=== PATIENT | male | born 1975 | race African-American/Black ===

== ENCOUNTER 2016-03-18 09:25 | Emergency (ER) | payer MEDICAID ==
[~2016-03-18] VITALS: Ht 172.7 cm; Wt 100.0 kg
[2016-03-18 11:41] VITALS: BP 137/87
[2016-03-18] MEDS ORDERED: IBUPROFEN 600 MG TABLET PO ONE (12:45)
== END 2016-03-18 13:33 | disposition home or self-care (01) ==
LOC: EMS 09:26
DX: S09.90XA Unspecified injury of head, initial encounter (principal); R11.10 Vomiting, unspecified; J45.909 Unspecified asthma, uncomplicated; W22.8XXA Striking against or struck by other objects, initial encounter; Y93.89 Activity, other specified; Y92.89 Other specified places as the place of occurrence of the external cause; Y99.8 Other external cause status
CPT/HCPCS: 70450; 72125; 99284

== ENCOUNTER 2016-03-22 09:48 | Emergency (ER) | payer MEDICAID ==
[~2016-03-22] VITALS: Ht 172.7 cm; Wt 105.0 kg
[2016-03-22 10:32] VITALS: BP 138/85
== END 2016-03-22 11:10 | disposition home or self-care (01) ==
LOC: EMS 09:49
DX: S09.90XA Unspecified injury of head, initial encounter (principal); Z00.00 Encounter for general adult medical examination without abnormal findings; J45.909 Unspecified asthma, uncomplicated; X58.XXXA Exposure to other specified factors, initial encounter; Y93.89 Activity, other specified; Y92.89 Other specified places as the place of occurrence of the external cause; Y99.8 Other external cause status
CPT/HCPCS: 99281

== ENCOUNTER 2016-05-11 07:25 | Emergency (ER) | payer SELFPAY ==
[~2016-05-11] VITALS: Ht 172.7 cm; Wt 109.1 kg
[2016-05-11] MEDS ORDERED: ONDANSETRON HCL 4 MG/2 ML VIAL IVP ONE (08:00)
[2016-05-11] MEDS ORDERED: LORazepam 2 MG/ML VIAL IVP ONE (08:00)
[2016-05-11] MEDS ORDERED: SODIUM CHLORIDE 0.9% 1,000 ML IV ONE (08:00)
[2016-05-11 08:07] LABS: BASOPHILS % (AUTO) 0.3 % (0.0-2.0); EOSINOPHILS % (AUTO) 1.7 % (1.0-6.0); HEMATOCRIT 43.5 % (41-53); HEMOGLOBIN 14.1 g/dL (13.5-17.5); LYMPHOCYTES # (AUTO) 1.1 K/uL (1.0-4.8); LYMPHOCYTES % (AUTO) 17.6 % (22.0-44.0); MEAN CORPUSCULAR HEMOGLOBIN 29.5 pg (26.0-34.0); MEAN CORPUSCULAR HGB CONC 32.4 G/dL (31.0-37.0); MEAN CORPUSCULAR VOLUME 91 fL (80-100); MONOCYTES # (AUTO) 0.6 K/uL (0.1-1.0); MONOCYTES % (AUTO) 9.8 % (2.0-9.0); NEUTROPHILS # (AUTO) 4.6 K/uL (1.8-7.7); NEUTROPHILS % (AUTO) 70.6 % (40.0-70.0); PLATELET COUNT (AUTO) 287 K/uL (150-450); RED BLOOD CELL COUNT(AUTO) 4.78 MIL/uL (4.50-5.90); RED CELL DISTRIBUTION WIDTH 14.6 % (11.5-14.5); WHITE BLOOD COUNT (AUTO) 6.5 K/uL (4.5-11.0)
[2016-05-11 08:15] LABS: INR 1.1 (0.9-1.1); PROTHROMBIN TIME 11.9 SEC (9.4-11.6)
[2016-05-11 08:16] LABS: ANION GAP 7 mmol/L (8-16); CALCIUM, TOTAL 8.3 mg/dL (8.8-10.5); CARBON DIOXIDE 29 mmol/L (22-29); CHLORIDE 103 mmol/L (98-107); CREATININE 1.13 mg/dL (0.60-1.30); GLOMERULAR FILTR. RATE CALC > 60 mL/min (>60); POTASSIUM 4.2 mmol/L (3.5-5.1); SODIUM SERUM 139 mmol/L (136-145); UREA NITROGEN, BLOOD 12 mg/dL (7-18)
[2016-05-11 08:22] LABS: ALANINE AMINOTRANSFERASE 38 U/L (12-78); ALBUMIN 3.1 g/dL (3.4-5.0); ASPARTATE AMINOTRANSFERASE 26 U/L (15-37); BILIRUBIN,TOTAL 0.3 mg/dL (0.1-1.0); TOTAL PROTEIN, SERUM 8.1 g/dL (6.4-8.2)
[2016-05-11 09:25] VITALS: BP 142/92
== END 2016-05-11 09:43 | disposition home or self-care (01) ==
LOC: EMS 07:26
DX: K92.0 Hematemesis (principal); R19.7 Diarrhea, unspecified; J45.909 Unspecified asthma, uncomplicated
CPT/HCPCS: 36415; 80053; 85025; 85610; 96361; 96374; 96375; 99284; J2060; J2405; J7030

== ENCOUNTER 2016-05-28 07:32 | Emergency (ER) | payer SELFPAY ==
[~2016-05-28] VITALS: Ht 172.7 cm; Wt 109.1 kg
[2016-05-28] MEDS ORDERED: KETOROLAC TROMETHAMINE 30 MG/ML VIAL IM ONE (08:45)
[2016-05-28 10:18] VITALS: BP 142/92
== END 2016-05-28 10:34 | disposition home or self-care (01) ==
LOC: EMS 07:34
DX: M62.830 Muscle spasm of back (principal); J45.909 Unspecified asthma, uncomplicated; M54.5 Low back pain
CPT/HCPCS: 72100; 96372; 99284; J1885

== ENCOUNTER 2016-10-13 08:03 | Emergency (ER) | payer SELFPAY ==
[~2016-10-13] VITALS: Ht 172.7 cm; Wt 102.3 kg
[2016-10-13] MEDS ORDERED: IPRATROPIUM BROMIDE 0.5 MG/2.5 ML NEB SOLUTION NEB ONE (08:45)
[2016-10-13] MEDS ORDERED: ALBUTEROL SULFATE 2.5 MG/0.5 ML NEB SOLUTION NEB ONE (08:45)
[2016-10-13 08:48] VITALS: BP 159/70
[2016-10-13] MEDS ORDERED: ALBUTEROL SULFATE HFA 90 MCG/PUFF 8 GM INHALER IH ONE (09:30)
== END 2016-10-13 09:35 | disposition home or self-care (01) ==
LOC: EMS 08:04
DX: J45.909 Unspecified asthma, uncomplicated (principal)
CPT/HCPCS: 94640; 99284; J7613; J3535

== ENCOUNTER 2017-04-29 00:48 | Emergency (ER) | payer OTHER ==
[~2017-04-29] VITALS: Ht 172.7 cm; Wt 113.6 kg
[2017-04-29 04:38] LABS: BASOPHILS % (AUTO) 0.5 % (0.0-2.0); EOSINOPHILS % (AUTO) 1.8 % (1.0-6.0); HEMATOCRIT 43.2 % (41-53); HEMOGLOBIN 14.1 g/dL (13.5-17.5); LYMPHOCYTES # (AUTO) 1.5 K/uL (1.0-4.8); LYMPHOCYTES % (AUTO) 25.1 % (22.0-44.0); MEAN CORPUSCULAR HEMOGLOBIN 29.8 pg (26.0-34.0); MEAN CORPUSCULAR HGB CONC 32.6 G/dL (31.0-37.0); MEAN CORPUSCULAR VOLUME 91 fL (80-100); MONOCYTES # (AUTO) 0.8 K/uL (0.1-1.0); MONOCYTES % (AUTO) 12.6 % (2.0-9.0); NEUTROPHILS # (AUTO) 3.7 K/uL (1.8-7.7); PLATELET COUNT (AUTO) 296 K/uL (150-450); RED BLOOD CELL COUNT(AUTO) 4.74 MIL/uL (4.50-5.90); RED CELL DISTRIBUTION WIDTH 14.3 % (11.5-14.5)
[2017-04-29 04:46] LABS: ANION GAP 7 mmol/L (8-16); CALCIUM, TOTAL 8.8 mg/dL (8.8-10.5); CARBON DIOXIDE 31 mmol/L (22-29); CHLORIDE 106 mmol/L (98-107); GLOMERULAR FILTR. RATE CALC > 60 mL/min (>60); GLUCOSE,RANDOM 105 mg/dL (70-110); POTASSIUM 4.2 mmol/L (3.5-5.1); SODIUM SERUM 144 mmol/L (136-145); UREA NITROGEN, BLOOD 11 mg/dL (7-18)
[2017-04-29 05:09] LABS: APPEARANCE,URINE CLOUDY (CLEAR); BILIRUBIN,URINE NEGATIVE (NEGATIVE); GLUCOSE, URINE (UA) NEGATIVE (NEGATIVE); KETONES,URINE NEGATIVE (NEGATIVE); LEUKOCYTE ESTERASE ,URINE NEGATIVE (NEGATIVE); NITRATE,URINE NEGATIVE (NEGATIVE); OCCULT BLOOD,URINE NEGATIVE (NEGATIVE); PH,URINE 5.5 (5.0-8.0); PROTEIN,URINE NEGATIVE (NEGATIVE); UROBILINOGEN,URINE 0.2 mg/dL (<=1.0)
[2017-04-29 05:12] LABS: AMPHET/METH SCREEN,URINE NEGATIVE (NEGATIVE); BARBITURATE SCREEN, URINE NEGATIVE (NEGATIVE); BENZODIAZEPINES SCREEN,URINE NEGATIVE (NEGATIVE); CANNABINOID SCREEN,URINE NEGATIVE (NEGATIVE); COCAINE SCREEN,URINE NEGATIVE (NEGATIVE); METHADONE SCREEN, URINE NEGATIVE (NEGATIVE); OPIATE SCREEN,URINE NEGATIVE (NEGATIVE)
[2017-04-29 05:12] LABS: ALANINE AMINOTRANSFERASE 37 U/L (12-78); ALBUMIN 3.1 g/dL (3.4-5.0); ALKALINE PHOSPHATASE 98 U/L (46-116); ASPARTATE AMINOTRANSFERASE 24 U/L (15-37); BILIRUBIN,TOTAL 0.2 mg/dL (0.1-1.0); CREATINE KINASE MB 1.2 ng/mL (0-5); CREATINE KINASE, TOTAL 223 U/L (39-308); TOTAL PROTEIN, SERUM 8.3 g/dL (6.4-8.2)
[2017-04-29 05:16] LABS: PHENCYCLIDINE SCREEN,URINE NEGATIVE (NEGATIVE)
[2017-04-29 06:01] VITALS: BP 134/95
== END 2017-04-29 06:30 | disposition home or self-care (01) ==
LOC: EMS 00:51
DX: R55 Syncope and collapse (principal); J45.909 Unspecified asthma, uncomplicated
CPT/HCPCS: 70450; 93005; 99285

== ENCOUNTER 2018-01-14 11:26 | Emergency (ER) | payer SELFPAY ==
[~2018-01-14] VITALS: Ht 175.3 cm; Wt 109.1 kg
[2018-01-14] MEDS ORDERED: FLUORESCEIN SODIUM 1 MG STRIP OU ONE (12:15)
[2018-01-14] MEDS ORDERED: ACETAMINOPHEN 500 MG TABLET PO ONE (12:15)
[2018-01-14] MEDS ORDERED: PROPARACAINE HCL 0.5% 15 ML OPHTHALMIC SOLUTION OU ONE (12:15)
[2018-01-14] MEDS ORDERED: ERYTHROMYCIN 0.5% 3.5 GM TUBE OPHTHALMIC OINTMENT OU ONE (12:30)
[2018-01-14 13:11] VITALS: BP 167/96
== END 2018-01-14 13:35 | disposition home or self-care (01) ==
LOC: EMS 11:29
DX: H10.89 Other conjunctivitis (principal); J02.9 Acute pharyngitis, unspecified; J45.909 Unspecified asthma, uncomplicated
CPT/HCPCS: 87430

== ENCOUNTER 2018-04-10 20:54 | Emergency (ER) | payer SELFPAY ==
[~2018-04-10] VITALS: Ht 175.3 cm; Wt 109.1 kg
[2018-04-10] MEDS ORDERED: ALBU8HFA IH (21:05)
[2018-04-10] MEDS ORDERED: ALBUTEROL SULFATE 2.5 MG/0.5 ML NEB SOLUTION NEB ONE (21:15)
[2018-04-10] MEDS ORDERED: IPRATROPIUM BROMIDE 0.5 MG/2.5 ML NEB SOLUTION NEB ONE (21:15)
[2018-04-10] MEDS ORDERED: ALBUTEROL SULFATE HFA 90 MCG/PUFF 8 GM INHALER IH ONE (23:00)
[2018-04-10] MEDS ORDERED: PredniSONE 20 MG TABLET PO ONE (23:00)
[2018-04-10] MEDS ORDERED: ACETAMINOPHEN 500 MG TABLET PO ONE (23:00)
[2018-04-11 00:08] VITALS: BP 137/88
== END 2018-04-11 00:09 | disposition home or self-care (01) ==
LOC: EMS 20:55
DX: J45.901 Unspecified asthma with (acute) exacerbation (principal); J06.9 Acute upper respiratory infection, unspecified
CPT/HCPCS: 94640; 99284; J7512; J3535

== ENCOUNTER 2018-07-19 22:16 | Emergency (ER) | payer SELFPAY ==
[~2018-07-19] VITALS: Ht 175.3 cm; Wt 111.4 kg
[~2018-07-19 22:16] MED LIST: ALBU8HFA IH
[2018-07-20] MEDS ORDERED: KETOROLAC TROMETHAMINE 60 MG/2 ML VIAL IM ONE
[2018-07-20 00:11] VITALS: BP 145/90
== END 2018-07-20 00:15 | disposition home or self-care (01) ==
LOC: EMS 22:18
DX: S00.83XA Contusion of other part of head, initial encounter (principal); S89.92XA Unspecified injury of left lower leg, initial encounter; J45.909 Unspecified asthma, uncomplicated; Z79.899 Other long term (current) drug therapy; Y04.0XXA Assault by unarmed brawl or fight, initial encounter; Y93.89 Activity, other specified; Y92.89 Other specified places as the place of occurrence of the external cause; Y99.8 Other external cause status
CPT/HCPCS: 96372; 99283; J1885